=== PATIENT | female | born 1970 | race Caucasian/White ===

== ENCOUNTER 2023-03-02 14:30 | Emergency (ER) | payer MEDICAID, OTHER ==
[~2023-03-02] VITALS: Ht 177.8 cm; Wt 156.0 kg
[2023-03-02 14:55] VITALS: O2SAT 97
[2023-03-02] MEDS ORDERED: LIDOCAINE HCL/PF 1% 10 MG/ML 5ML VIAL INFIL ONE (17:45)
[2023-03-02] MEDS ORDERED: BACITRACIN ZINC OINT UDPKT TOP ONE (17:45)
[2023-03-02] MEDS ORDERED: TETANUS, DIPHTHERIA, PERTUSSIS VAC/PF 0.5ML (>10YR OLD) IM ONE (17:45)
[2023-03-02] MEDS ORDERED: LIDOCAINE HCL/EPINEPHRINE 1%-EPI 1:100,000 20 ML VIAL INFIL ONE (17:45)
[2023-03-02] MEDS ORDERED: CEPH500T MT (18:11)
[2023-03-02] MEDS ORDERED: NAPR-679 MT (18:11)
[2023-03-02] MEDS ORDERED: SULF1TAB48 MT (18:11)
[2023-03-02 19:29] VITALS: BP 142/87; PULSE 85; RESP 20; TEMP 97.9
== END 2023-03-02 19:30 | disposition home or self-care (01) ==
LOC: ER 14:30
DX: L02.31 Cutaneous abscess of buttock (principal); I10 Essential (primary) hypertension; Z90.49 Acquired absence of other specified parts of digestive tract
CPT/HCPCS: 10060; 99283; J3490 ×2; Z7610 ×4

== ENCOUNTER 2023-03-05 07:53 | Emergency (ER) | payer OTHER ==
[~2023-03-05] VITALS: Ht 177.8 cm; Wt 155.0 kg
[~2023-03-05 07:53] MED LIST: CEPH500T MT; NAPR-679 MT; SULF1TAB48 MT
[2023-03-05 07:58] VITALS: BP 156/92; PULSE 99; RESP 16; TEMP 98.9; O2SAT 99
== END 2023-03-05 09:58 | disposition home or self-care (01) ==
LOC: ER 07:53
DX: Z48.00 Encounter for change or removal of nonsurgical wound dressing (principal); I10 Essential (primary) hypertension
CPT/HCPCS: 99281